=== PATIENT | female | born 1965 | race Caucasian/White ===

== ENCOUNTER 2019-10-25 13:08 | Emergency (ER) | payer OTHER ==
[2019-10-25 15:00] VITALS: BP 167/84
--- NOTE | 2019-10-25 15:20 | UC ---
UC General HPI - HPI Summary HPI Summary: 1-EAR PAIN: R ear pain for quite some time and she feels its related to a mass she has had for approx 2 yrs. she was supposed to get it biopsies but never did. she is a smoker. 2-COUGH: a smoker c/o intermittent coughing that bothers her at night for the past year. 3-INCREASED URINATION: 2 wks w/ no other symptoms. she feels she urinates more than she drinks. no pain assoc.w/ this and she does not report DM. - History of Current Complaint Chief Complaint: UCGeneralIllness Stated Complaint: RT EAR PAIN Time Seen by Provider: 10/25/19 14:46 Hx Obtained From: Patient Pain Intensity: 3 - Allergy/Home Medications Allergies/Adverse Reactions: Allergies Allergy/AdvReac Type Severity Reaction Status Date / Time No Known Allergies Allergy Verified 10/25/19 14:52 Home Medications: Home Medications Lisinopril TAB* [Prinivil TAB 10 MG*] 1 tab PO DAILY 10/25/19 [History Confirmed 10/25/19] QUEtiapine TAB* [Seroquel 25 MG TAB*] 1 tab PO TID 10/25/19 [History Confirmed 10/25/19] Quetiapine Fumarate [Seroquel 200 MG] 200 mg PO TID 10/25/19 [History Confirmed 10/25/19] PMH/Surg Hx/FS Hx/Imm Hx Previously Healthy: No - has had several issue she has not followed up with Cardiovascular History: Hypertension - Surgical History Surgical History: Yes Surgery Procedure, Year, and Place: hysterectomy. cholecystectomy - Family History Known Family History: Positive: Cardiac Disease, Hypertension - Social History Alcohol Use: None Alcohol Amount: sober 2 years Substance Use Type: None Substance Use Comment - Amount & Last Used: prior h/o opiate use; last 2 years ago Smoking Status (MU): Heavy Every Day Tobacco Smoker Amount Used/How Often: 1/2 ppd - Immunization History Most Recent Influenza Vaccination: none Review of Systems All Other Systems Reviewed And Are Negative: Yes Constitutional: Negative: Fever, Chills, Fatigue Skin: Negative: Rash ENT: Positive: Ear Ache, Other - neck mass. Negative: Sore Throat Respiratory: Positive: Cough. Negative: Shortness Of Breath, Other - wheezing Gastrointestinal: Negative: Abdominal Pain, Vomiting, Nausea Genitourinary: Positive: Frequency. Negative: Dysuria, Hematuria, Urgency, Abnormal Bleeding Neurological: Negative: Headache Physical Exam Triage Information Reviewed: Yes Appearance: Well-Appearing Vital Signs: Initial Vital Signs Temp 98.2 F 10/25/19 14:55 Pulse 88 10/25/19 14:55 Resp 15 10/25/19 14:55 BP 167/84 10/25/19 14:55 Pulse Ox 96 10/25/19 14:55 Vital Signs Reviewed: Yes Eyes: Positive: Conjunctiva Clear ENT: Positive: Pharynx normal, TMs normal, Uvula midline Neck: Positive: Supple, Nontender, Enlarged Nodes @ - R upper chain, nontender Respiratory: Positive: Lungs clear Cardiovascular Exam: Normal Neurological: Positive: Alert Skin: Negative: Rashes Course/Dx - Course Course Of Treatment: 1-EAR PAIN-on exam no abnormal findings in ear and likely related to URI she is having. the mass she is associating this w/ is very concerning as she was supposed to have biopsy years ago and did not. she is a smoker. 2-COUGH-=no signs of pneumonia and likely viral vs. a smoker's cough. will give albuterol but she should go to primary care to get copd ruled out. she should also discuss bp w/ her pcp. 3-INCREASED URINATION-2 wks and concerning for increased glucose. no signs of infxn OR spilling excess glucose but have asked her to get a work up for other causes related to SIADH w/ her primary care provider. another concern is the mass in her throat she has get to get biopsied. we had long discussion re: importance of seeing primary care for work up - Differential Dx - Multi-Symptom Differential Diagnoses: Other - Diagnoses Provider Diagnosis: Ear pain, Smokers' cough, Increased urinary frequency Discharge ED - Sign-Out/Discharge Documenting (check all that apply): Patient Departure All imaging exams completed and their final reports reviewed: No Studies - Discharge Plan Condition: Good Disposition: HOME Prescriptions: Albuterol HFA INHALER* [Ventolin HFA Inhaler*] 2 puff INH Q4H PRN #1 mdi PRN Reason: Cough Patient Education Materials: How to Stop Smoking (ED) Referrals: Joselo Davis MD [Primary Care Provider] - Additional Instructions: You have several issues that we are unable to completely work up here at the urgent care. It is my recommendation that you make appt with your primary care provider to discuss all issues. Your blood pressure is elevated today. - Billing Disposition and Condition Condition: GOOD Disposition: Home - Attestation Statements Provider Attestation: I was available for consult. This patient was seen by the LALITA. The patient was not presented to , seen by or examined by me -Giovanni Mac MD
== END 2019-10-25 15:32 | disposition home or self-care (01) ==
LOC: UCCORT 13:08
DX: H92.01 Otalgia, right ear (principal); R05 Cough; R35.0 Frequency of micturition; I10 Essential (primary) hypertension; F17.210 Nicotine dependence, cigarettes, uncomplicated; Z79.899 Other long term (current) drug therapy
CPT/HCPCS: 81003; 87086; 99212; G0463